=== PATIENT | female | born 1990 | race Caucasian/White ===

== ENCOUNTER → 2020-01-18 | Outpatient (CLI) | payer OTHER ==
--- NOTE | 2020-01-18 12:14 | REPVR ---
PROCEDURE INFORMATION: Exam: US After First Trimester, Transabdominal Exam date and time: 01/18/2020 11:16 AM Age: 29 years old Clinical indication: Screening exam; Routine US, uterus; Additional info: Measuring less then dates. PT states baby was measuring 8 days behind with last ultrasound, first daughter was born at just under 6 lbs TECHNIQUE: Imaging protocol: Real-time transabdominal obstetrical ultrasound of the maternal pelvis and a second or third trimester with image documentation. COMPARISON: No relevant prior studies available. FINDINGS: Gestation: Single live intrauterine gestation. heart rate: The FHR is 139 bpm. Presentation: A normal intrauterine is present in a vertex presentation. Placenta: The placenta is located anteriorly and is normal. Amniotic fluid: Amniotic fluid is normal for gestational age. Amniotic fluid index: The CHARITO is not measured cm. ANATOMY: Brain parenchyma: Normal Midline falx: Normal Cerebellum: Normal Cerebral ventricles: The ventricular atria are unremarkable. 3rd ventricle: Possibly prominent, this may represent a cavum. 4th ventricle: Not well seen Cisterna magna: Unremarkable Septum pellucidum: See 3rd ventricle Coronal face including nose, lips and lens: Limited demonstration by position. Upper lip and nose: Limited demonstration by position. Neck: Limited demonstration Aortic arch: Obscured by position Heart four-chamber view, heart size and position: Normal Heart three-vessel view: Obscured by position Heart three-vessel trachea view: Obscured by position Heart right ventricular outflow tract: Obscured by position Heart left ventricular outflow tract: Normal superior and inferior vena cava: Obscured by position diaphragm: Normal gallbladder: Obscured by position liver: Normal kidneys: Normal renal arteries: Obscured by position stomach: Normal urinary bladder: Normal Spine: Normal Spine shape and curvature: Normal Integrity soft tissue overlying spine: Normal Ribs: Obscured by position Umbilical cord insertion site into the abdomen: Normal Umbilical cord vessel number: Normal 3 vessel Arms and hands: The arms are documented, assessment of the hands is limited. Legs and feet: The legs are documented, assessment of the feet is limited. abdominal wall: Normal external genitalia: Not demonstrated BIOMETRY: Gestational age (AUA): AUA age is 26 weeks 1 day. Estimated due date (AUA): DENNY is 04/24/2020 compared to previous impression of 04/14/2020. Estimated weight: Estimated weight is 893 g. Biparietal diameter: The BPD is 6.52 cm corresponding to 26 weeks 2 days. Head circumference: The HC is 23.9 cm corresponding to 26 weeks 0 days. Abdominal circumference: The AC is 21.6 cm corresponding to 26 weeks 1 day. Femur length: The FL is 4.82 cm corresponding to 26 weeks 1 day. MATERNAL ANATOMY: Uterus: Unremarkable. Cervix: Cervical length is 5.3 cm. Right adnexa: Ovary is obscured by overlying bowel gas. Left adnexa: Ovary is obscured by overlying bowel gas. IMPRESSION: Single live intrauterine gestation. Electronically signed by: Anibal Acosta On 01/18/2020 12:14:39 PM
== END ==
LOC: M RAD 10:29
PROVIDERS: ATTEND Obstetrics & Gynecology
DX: O26.842 Uterine size-date discrepancy, second trimester (principal); Z3A.26 26 weeks gestation of pregnancy

== ENCOUNTER → 2020-02-20 | Outpatient (CLI) | payer OTHER ==
--- NOTE | 2020-02-20 10:53 | REP ---
INDICATION: PREG,GROWTH SCAN- IUGR, CHR HTN COMPARISON: 01/18/2020 TECHNIQUE: Transabdominal obstetrical ultrasound with color Doppler evaluation. FINDINGS: Examination demonstrates a single live intrauterine in breech presentation. motion is identified by technologist. Placenta is noted anterior and grade 2 without evidence for placenta previa or abruption. Amniotic fluid volume is normal. Cervix measures 3.7 cm in length and appears closed. No evidence for nuchal cord. Gestational age by 1st ultrasound 30 weeks 5 days with DENNY 04/25/2020. Gestational age by current measurements 29 weeks 5 days with DENNY 05/02/2020. FHR equals 133 beats per minute. BPD: 7.3 cm; 29 weeks 2 days HC: 27.1 cm; 29 weeks 4 days AC: 26.0 cm; 30 weeks 1 day FL: 5.8 cm; 30 weeks 2 days HL: 5.0 cm; 29 weeks 3 days HC/AC: 1.04 Estimated weight 1507 grams (42ndpercentile). CHARITO: 12.6 cm Umbilical artery 1 SD ratio: 2.60 Middle cerebral artery SD ratio: 6.94 Anatomical assessment demonstrates normal structures. IMPRESSION: Single live intrauterine in breech presentation demonstrating appropriate interval growth and estimated weight as compared with 1st ultrasound. <Electronically signed by Maurizio Vazquez > 02/20/20 [id number]
== END ==
LOC: M RAD 09:28
PROVIDERS: ATTEND Obstetrics & Gynecology
DX: O16.3 Unspecified maternal hypertension, third trimester (principal); Z3A.31 31 weeks gestation of pregnancy

== ENCOUNTER → 2020-02-27 | Outpatient (CLI) | payer OTHER ==
--- NOTE | 2020-02-29 07:26 | REP ---
INDICATION: PREG, IUGR, CHR HTN COMPARISON: 02/20/2020 TECHNIQUE: Transabdominal obstetrical ultrasound with color Doppler evaluation. FINDINGS: Examination demonstrates a single live intrauterine in cephalic presentation. motion is identified by technologist. Placenta is noted anterior/right lateral and grade 2 without evidence for placenta previa or abruption. Amniotic fluid volume is normal. Cervix measures 3.7 cm in length and appears closed. CHARITO: 11.8 cm (8.6-24.1) heart rate: 135 beats per minute Umbilical artery S/D ratio: 3.02 (1.85-3.89). IMPRESSION: Single live advanced gestation in cephalic presentation. Amniotic fluid volume is within normal range. <Electronically signed by Maurizio Vazquez > 02/29/20 [id number]
== END ==
LOC: M RAD 10:21
PROVIDERS: ATTEND Obstetrics & Gynecology
DX: Z36.4 Encounter for antenatal screening for fetal growth retardation (principal); O16.3 Unspecified maternal hypertension, third trimester

== ENCOUNTER → 2020-03-05 | Outpatient (CLI) | payer OTHER ==
--- NOTE | 2020-03-05 12:34 | REP ---
INDICATION: GR SCAN W UMBILICAL DS . COMPARISON: 02/27/2020 as well as other prior exams. TECHNIQUE: Real-time sonographic evaluation of the gravid uterus performed. FINDINGS: Estimated gestational age is34 weeks 2 days, EDC 04/14/2020. Today's measurements indicate appropriate growth. Presentation: Cephalic Placenta the anterior, grade 1, without evidence of placenta previa. There is again a marginal cord insertion at the placenta. heart rate is recorded at 133 beats per minute. Amniotic fluid is subjectively normal. CHARITO 15.4 (normal 8.0-24.8). Closed cervical length is measured at 4.2 cm. Biometry chart: BPD: 81 mm, 32 weeks 5 days, 26th percentile. HC: 290 mm, 32 weeks 0 days, 15th percentile AC: 284 mm, 32 weeks 3 days, 22nd percentile Femur length: 60 mm, 31 weeks 1 days, less than 5th percentile HC to AC ratio: 1.02, normal range 0.94-1.13. Estimated weight: 1886g, 21st percentile. SD ratio umbilical artery 2.49 (normal 1.72-3.65). RI 0.60 (normal is 0.47-0.73). anatomy: Cranium: Grossly normal Lateral Ventricles/Choroid Plexus: Grossly normal Posterior Fossa/Cerebellum: Grossly normal Nose/lips/profile: Grossly normal, suboptimal due to position. Four chamber heart: Suboptimal visualization Right ventricular outflow tract: Suboptimal visualization Left ventricular outflow tract: Suboptimal visualization Left-sided stomach: Grossly normal Kidneys: Grossly normal Bladder: Grossly normal Cord Insertion: Grossly normal 3 vessel cord: Grossly normal Spine: Grossly normal IMPRESSION: Viable single intrauterine gestation as above. <Electronically signed by Dimas Munoz > 03/05/20 [id number]
== END ==
LOC: M RAD 10:26
PROVIDERS: ATTEND Obstetrics & Gynecology
DX: O10.011 Pre-existing essential hypertension complicating pregnancy, first trimester (principal)

== ENCOUNTER → 2020-03-12 | Outpatient (CLI) | payer OTHER ==
--- NOTE | 2020-03-13 07:27 | REP ---
INDICATION: HAS CHTN AND IUGA WITH COMPARISON: 03/05/2020 TECHNIQUE: Transabdominal obstetrical ultrasound with color Doppler evaluation. FINDINGS: Examination demonstrates a single live intrauterine in cephalic presentation. motion is identified by technologist. Placenta is noted right lateral and grade 2 without evidence for placenta previa or abruption. Amniotic fluid volume is normal. Cervix measures 4.0 cm in length and appears closed.. Gestational age by LMP 35 weeks 2 days with DENNY 04/14/2020. Gestational age by 1st U/S 33 weeks 5 days with DENNY 04/25/2020. FHR equals 129 beats per minute. Amniotic fluid index: 12.0 cm (7.8-24.9) Umbilical artery SD ratio: 3.87 (1.67-3.57) IMPRESSION: Single live advanced gestation in cephalic presentation. Amniotic fluid index within normal limits. Umbilical artery SD ratio mildly elevated. <Electronically signed by Maurizio Vazquez > 03/13/20 [id number]
== END ==
LOC: M RAD 10:17
PROVIDERS: ATTEND Obstetrics & Gynecology
DX: Z34.83 Encounter for supervision of other normal pregnancy, third trimester (principal); Z3A.33 33 weeks gestation of pregnancy

== ENCOUNTER → 2020-03-19 | Outpatient (CLI) | payer OTHER ==
--- NOTE | 2020-03-20 04:09 | REP ---
INDICATION: PREG,GROWTH SCAN- IUGR, CHR HTN COMPARISON: 03/12/2020 TECHNIQUE: Transabdominal obstetrical ultrasound with color Doppler evaluation. FINDINGS: Examination demonstrates a single live intrauterine in cephalic presentation. motion is identified by technologist. Placenta is noted anterior and grade 1 without evidence for placenta previa or abruption. Amniotic fluid volume is normal. Cervix measures 3.2 cm in length and appears closed.. Gestational age by LMP 36 weeks 2 days with DENNY 04/14/2020. Gestational age by current measurements 33 weeks 2 days with DENNY 05/05/2020. FHR equals 122 beats per minute. BPD: 8.2 cm 33 weeks 1 day HC: 30.7 cm 34 weeks 2 days AC: 29.9 cm 33 weeks 6 days FL: 6.7 cm 34 weeks 2 days HL: 5.4 cm 31 weeks 2 days HC/AC: 1.03 Estimated weight 2308 grams (17thpercentile). CHARITO: 9.2 cm (7.6-24.8) Umbilical artery SD ratio: 2.70 (1.63-3.49) Middle cerebral artery SD ratio: 4.39; RI: 0.77 Limited anatomical assessment demonstrates no obvious abnormalities. The right cardiac ventricular outflow tract is incompletely evaluated due to advanced age and positioning. IMPRESSION: Single live advanced gestation in cephalic presentation. While the estimated weight falls within normal range based on age by LMP, measurements suggest age at 33 weeks 2 days suggesting less than expected growth. <Electronically signed by Maurizio Vazquez > 03/20/20 [id number]
== END ==
LOC: M RAD 10:09
PROVIDERS: ATTEND Obstetrics & Gynecology
DX: Z34.83 Encounter for supervision of other normal pregnancy, third trimester (principal); Z3A.33 33 weeks gestation of pregnancy

== ENCOUNTER 2020-03-31 09:49 | Inpatient (IN) | payer OTHER ==
[~2020-03-31] VITALS: Ht 162.6 cm; Wt 58.9 kg
[2020-03-31] VITALS (13 sets, daily range): BP systolic 107–131; BP diastolic 56–79
[2020-03-31] MEDS ORDERED: LABE100T4 PO (10:10)
[2020-03-31] MEDS ORDERED: ASPI81CH33 PO (10:10)
[2020-03-31] MEDS ORDERED: MULTTAB20 PO (10:10)
[2020-03-31] MEDS: LABETALOL 100 MG TAB PO SCH ×2 (11:02→22:01)
--- NOTE | 2020-03-31 11:11 | HPEPDOC ---
Obstetrical History & Physical General Date of Admission Mar 31, 2020 at 09:49 History of Present Illness 29 yo at 38+0 weeks gestation by 5+6 week US presents to L&D today for a scheduled IOL for CHTN (on labetalol) and possible IUGR. Ms. Lay reports feeling well today and has no complaints. Today she denies any headaches, RUQ pain, visual changes, or SOB. Chief Complaint: Induction of labor Information Provided By: Patient Age: 29 : 3 Term: 1 Pre-term: 0 Abortions: 1 Livin Care Care: Good Care Dating Final EDC: Apr 14, 2020 Final EDC for Daily Update: Apr 14, 2020 Final EDC by: 1st trimester (US) (DENNY of [id number] set by 5+6 week US) Antepartum Course Diagnos(e)s Chronic hypertension (well controlled by 100mg BID labetalol) Been on ASA throughout . Possible IUGR (3rd percentile for growth early in the . 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 Past Medical History Past Obstetrical History : Past Obstetrical History: Multigravida ( in 2018 at 37 weeks after IOL for Pre E) DRY [employer]IP[employer]ER History: No pertinent history Past Medical History Medical History Possible ITP Chronic Hypertension Surgical History: Tucker teeth Social History Marital Status: Family situation: Spouse/partner home Psychosocial History: No pertinent psych hx * Smoker: non-smoker Alcohol: Denies Drugs: denies Abuse Violence Screening Have you been hit/kicked/slapp: No Have you been sexually assault: No Imunizations Tdap status: current Influenza Status: current Allergies Coded Allergies: No Known Allergies (Unverified , 03/31/20) Medications Scheduled Aspirin (Aspirin) 81 Mg Tab.chew, 1 TAB PO DAILY for pain Labetalol HCl (Labetalol HCl) 100 Mg Tablet, 1 TAB PO BID No122/Iron/Folic Acid ( Multi Tablet) 1 Each Tablet, 1 TAB PO DAILY Physical Examination Physical Examination GENERAL: Alert and oriented times three. ABDOMEN: Gravid and non-tender to touch. FETUS: Is vertex (VTX) by sterile vaginal examination (SVE), EXTREMITIES: No edema. Vital Signs/I&O Vital Signs Date Time Temp Pulse Resp B/P (MAP) Pulse Ox O2 Delivery O2 Flow Rate FiO2 03/31/20 10:15 98.8 78 16 124/79 (94) Laboratory Data [facility] Laboratory Tests 2 03/31/20 10:03: Serology Scanned Report Hepatitis B Testing Urine Culture: No Growth Pertinent Laboratoy Data Blood Type: AB+ RBC Antibody Screen: Negative HIV: Negative Hepatitis B: Negative Hepatitis C: Negative Rapid Plasma Reagin: Nonreactive Rubella: Immune Varicella: Immune Chlamydia/Gonorrhea: Negative Group B Streptococcus: Negative Quad Screen Test: Negative Cystic Fibrosis: Negative Glucose Tolerance Test: 155 (Abnormal 1hr GTT of 155, normal 3hr TT) Anatomy Ultrasound Placenta Location: Anterior Normal Anatomy: Yes Placenta Previa: No Other Ultrasounds Numerous ultrasounds and umbilical artery doppler studies due to possible IUGR measured earlier in the . Most recent growth scan on 19Mar2020 demonstrated fetus in the 17th percentile by weight. Umbilical artery doppler study normal. Steroid Therapy Steroid Therapy: No Vaginal Examination Dilation: 1cm Effacement: 50% Station: -3 Cervical Consistency: Medium Cervical Position: Posterior Presentation: Cephalic presentation Position: Vertex (occiput) Assessment Heart Rate (FHR): 125 Variability: Moderate Accelerations: Positive Decelerations: None Tocometer Contractions: No Assessment/Plan Assessment Irene is a 29 yo at 38+0 weeks gestation who presents to L&D today for IOL for CHTN and possible IUGR. Plan Admit for IOL. Apply IV fluids. GBS negative. Cervix unfavorable. Will start IOL with PO cytotec. Regular diet while cervical ripening. Home labetalol ordered. Will obtain CBC, CMP, and UA. Monitor BPs closely. Anticipate . Ethan Myles, DO Labor and Delivery Counseling Vaginal / Operative vaginal delivery / C section counseling We will deliver your baby through the vagina with possible assistance of forceps or vacuum device if needed for maternal or indications. Forceps and vacuum are devices that can assist with vaginal delivery when normal pushing efforts c annot achieve delivery on their own or when delivery is needed in an emergency for baby's well-being. Medications may be required to induce or augment (help) your labor in order to achieve a vaginal delivery. An episiotomy may be required to help your baby to delivery vaginally. You may also require repair of any lacerations or tears of your vagina or vulva that are caused by delivery. In some cases, emergencies can occur that require an emergency section delivery so quickly that there may not be enough time to stop and complete consent forms for section. Understand that if this occurs, your providers will discuss the need for a section with you before they proceed with surgery. section is the delivery of your baby through an incision in your abdomen. In some situations, section may be safer to mom and baby than continuing labor and is only performed when clinically indicated. Risks of vaginal delivery include but are not limited to: Bleeding, infection, injury to the vagina, pelvic structures, injury to baby, damage to the uterus, reactions to anesthesia, uterine rupture, risk of hysterectomy for life threatening bleeding, or . Medications used to induce or augment labor may increase your risk for infection, uterine tachysystole, uterine rupture, heart rate abnormalities, need for emergency delivery or possible hysterectomy, and hemorrhage. Additional risks for use of forceps and vacuum include: increased risk of perineal and vaginal lacerations, risk of urinary or bowel incontinence, increased risk of injury to baby with bru ising, scratches, hematomas on the head, or intracranial bleeding. Ms. Lay appears to understand these risks and elects to proceed with IOL. She also consents to a blood transfusion if necessary. DO ARTI Arciniega CHRISTOPHER J. DO Mar 31, 2020 11:10
[2020-03-31 12:34] LABS: BASO % 0.1 % (0.0-1.0); EOS % 0.3 % (0.0-3.0); HEMATOCRIT 38.1 % (36.0-47.0); HEMOGLOBIN 12.7 g/dl (12.0-15.5); LYMPH # 0.8 10^3/uL (1.5-5.0); LYMPH % 11.5 % (24.0-44.0); MEAN CORPUSCULAR HEMOGLOBIN 31.9 pg (27.0-33.0); MEAN CORPUSCULAR HGB CONC 33.3 g/dl (32.0-36.5); MEAN CORPUSCULAR VOLUME 95.7 fl (80.0-96.0); MONO # 0.5 10^3/uL (0.0-0.8); MONO % 7.2 % (0.0-5.0); NEUTROPHILS # 5.7 10^3/uL (1.5-8.5); NEUTROPHILS % 80.5 % (36.0-66.0); PLATELET COUNT, AUTOMATED 116 10^3/uL (150-450); RED BLOOD COUNT 3.98 10^6/uL (4.00-5.40); WHITE BLOOD COUNT 7.1 10^3/uL (4.0-10.0)
[2020-03-31] MEDS ORDERED: miSOPROStol 50 MCG 1/2 TAB (S0191) PO ONE (12:45)
[2020-03-31 12:52] LABS: ALT/SGPT 21 U/L (12-78); BILIRUBIN,TOTAL 0.4 MG/DL (0.2-1.0); CREATININE FOR GFR 0.48 MG/DL (0.55-1.30); GLOMERULAR FILTRATION RATE > 60.0 (>60); LDH LACTATE DEHYDROGENASE 208 U/L (84-246); URIC ACID 3.7 MG/DL (2.6-6.0)
[2020-03-31 13:00] LABS: APPEARANCE, URINE CLEAR (CLEAR); BACTERIA, URINE AUTO NEGATIVE (NEGATIVE); BILIRUBIN, URINE AUTO NEGATIVE (NEGATIVE); BLOOD, URINE BLOOD 3+ (NEGATIVE); COLOR, URINE STRAW (YELLOW); GLUCOSE, URINE (UA) AUTO NEGATIVE (NEGATIVE); KETONE, URINE AUTO TRACE mg/dL (NEGATIVE); LEUKOCYTE ESTERASE, URINE AUTO NEGATIVE (NEGATIVE); NITRITE, URINE AUTO NEGATIVE (NEGATIVE); PROTEIN, URINE AUTO NEGATIVE (NEGATIVE); RBC, URINE AUTO 0 /HPF (0-3); SPECIFIC GRAVITY URINE AUTO 1.003 (1.002-1.035); SQUAMOUS EPITHELIAL CELL UR AU 0 /HPF (0-6); UROBILINOGEN, URINE AUTO 0.2 mg/dL (0.0-2.0); WBC, URINE AUTO 1 /HPF (0-3)
[2020-03-31 13:16] LABS: CREATININE,RANDOM URINE 21.5 MG/DL; TOTAL PROTEIN,RANDOM URINE 7.8 MG/DL (0.0-12.0)
--- NOTE | 2020-03-31 17:43 | IPNPDOC ---
Text Note Date of Service The patient was seen on 03/31/20. NOTE Irene is now s/p one dose of cytotec. She reports feeling well. Chaperoned by RN Cervix: /3. Early bulb placed with 60ml saline intrauterine. FHR Cat I with moderate variability, +accels, no decels. Blood pressure remains stable. Admission platelets 116. Urine pr:cr is 0.36, though it is unclear what her baseline level of proteinuria is. Continue with IOL. All questions answered. DO Shar VS,Sherry, I+O VS, Sherry, I+O Laboratory Tests 03/31/20 12:15 Vital Signs Date Time Temp Pulse Resp B/P (MAP) Pulse Ox O2 Delivery O2 Flow Rate FiO2 03/31/20 15:37 72 119/69 (86) 03/31/20 14:29 98.3 16 NIKOLAI CHI DO Mar 31, 2020 17:43
[2020-03-31] MEDS ORDERED: BUTORPHANOL 2 MG/ML INJ (J0595) IV ONE (18:30)
[2020-03-31] MEDS ORDERED: ONDANSETRON 4MG/2ML VIAL IV PRN (18:30)
[2020-03-31] MEDS ORDERED: LR 1,000 ML IV SCH (23:14)
[2020-03-31] MEDS ORDERED: OXYTOCIN DRIP 30 UNITS in IV 1 EA IV SCH (23:15)
[2020-04-01] VITALS (9 sets, daily range): BP systolic 109–140; BP diastolic 62–88
[2020-04-01] MEDS ORDERED: OXYTOCIN DRIP 30 UNITS in IV 1 EA IV SCH (01:06)
[2020-04-01 01:11] LABS: HEMATOCRIT 37.7 % (36.0-47.0); HEMOGLOBIN 12.4 g/dl (12.0-15.5); MEAN CORPUSCULAR HEMOGLOBIN 31.5 pg (27.0-33.0); MEAN CORPUSCULAR HGB CONC 32.9 g/dl (32.0-36.5); MEAN CORPUSCULAR VOLUME 95.7 fl (80.0-96.0); PLATELET COUNT, AUTOMATED 114 10^3/uL (150-450); RED BLOOD COUNT 3.94 10^6/uL (4.00-5.40); WHITE BLOOD COUNT 12.4 10^3/uL (4.0-10.0)
--- NOTE | 2020-04-01 01:13 | DNPDOC ---
[facility] Delivery Note Delivery Note DATE OF DELIVERY: 01Apr2020 at ~0045 PREDELIVERY DIAGNOSIS: 38+1 weeks gestation and IOL for CHTN POST DELIVERY DIAGNOSIS: Delivered. PROCEDURE: Spontaneous vaginal delivery HHAS: Dr. Myles ANESTHESIA: None ESTIMATED BLOOD LOSS: 200 FINDINGS: 4 pound 14 ounce female , Score 9/9 DELIVERY SUMMARY: Irene's boss bulb was expelled and she rapidly progressed after that. She was C/C/+1 and had a desire to push. The bed was broken down and she was prepped for delivery. With excellent effort over about only 5 minutes, her baby delivered. Presentation was RASHMI with restitution to ROT. The left anterior shoulder delivered with gentle traction followed easily by the rem ainder of the body. The infant was dried and stimulated on the field and a bulb suction was used. The was placed on the maternal abdomen and cried vigorously. The three vessel umbilical cord was then clamped and cut by the FOB after appropriate time delay and under my direction. Third stage was completed with gentle traction on on the cord and it was productive of an intact placenta. The uterus was firmed with massage and pitocin was administered IV bolus. Inspection of the cervix, vagina, labia, and perineum revealed a midline first degree vaginal floor laceration. This was repaired with 3-0 vicryl suture in the usual fashion after injection of lidocaine for analgesia. There was excellent cosmesis and hemostasis after the repair. The fundus was palpated again and was firm. Sponge, instrument, and needle counts were correct X2. Mother and stable when I left the room. DO ARTI Arciniega CHRISTOPHER J. DO Apr 01, 2020 01:13
[2020-04-01] MEDS ORDERED: MEASLES,MUMPS,RUBELLA VACCINE INJ (MMR-II) (90707) SC SCH (01:15)
[2020-04-01] MEDS ORDERED: RHOGAM 300 MCG (1500 IU) INJ (J2790) IM SCH (01:15)
[2020-04-01] MEDS ORDERED: BENZOCAINE 20% HEMORRHOIDAL OINTMENT 28GM TUBE TOP PRN (01:15)
[2020-04-01] MEDS ORDERED: ACETAMINOPHEN 500 MG TAB PO PRN (01:15)
[2020-04-01] MEDS ORDERED: ONDANSETRON 4MG/2ML VIAL IV PRN (01:15)
[2020-04-01] MEDS ORDERED: DOCUSATE SODIUM 100MG CAPSULE PO PRN (01:15)
[2020-04-01] MEDS ORDERED: IBUPROFEN 600MG TAB PO PRN (01:15)
[2020-04-01] MEDS ORDERED: LIDOCAINE 1% MDV 20ML VIAL SC ONE (02:30)
[2020-04-01] MEDS: IBUPROFEN 800 MG TAB PO PRN (03:55)
[2020-04-01] MEDS: ACETAMINOPHEN TAB 650MG DOSE (2X325MG) PO PRN ×2 (07:37→20:25)
[2020-04-01] MEDS: PRENATAL VITAMINS CHEWABLE TABLET PO SCH (09:41)
[2020-04-01] MEDS: LABETALOL 100 MG TAB PO SCH ×2 (09:42→20:25)
[2020-04-02] MEDS: IBUPROFEN 800 MG TAB PO PRN ×2 (05:14→15:14)
[2020-04-02 05:31] VITALS: BP 113/63
[2020-04-02] MEDS: PRENATAL VITAMINS CHEWABLE TABLET PO SCH (09:17)
[2020-04-02] MEDS: LABETALOL 100 MG TAB PO SCH ×2 (09:18→20:51)
--- NOTE | 2020-04-02 15:55 | IPN ---
PROGRESS NOTE DATE: 04/02/2020 09:49:00 am SUBJECTIVE: This lady is a 29-year-old 3 now para 2 admitted for induction of labor at 38 weeks gestation because of chronic hypertension and questionable IUGR. She had a spontaneous vaginal delivery of female infant 4 pounds, 14 ounces, Apgars of 9 and 9 at 1 and 5 minutes respectively. She sustained a first degree tear which was repaired in the usual fashion. Presently, her hemoglobin is 12.4, hematocrit is 37.7 and platelets are 114,000. She did have low platelets on admission at 116,000. Her chemistry which was reviewed was within normal limits. Her hematology is mentioned. Her urine was negative. She did have 3+ blood, that is because of bloody discharge from labor. Her protein/creatinine ratio was 0.36. PHYSICAL EXAMINATION: This morning her blood pressure is 113/63, respirations are 18, pulse is 70, temperature is 98.4. She has been normotensive throughout taking her Labetalol 100 mg b.i.d. p.o. We discussed phlebitis, cystitis, mastitis, endometritis and cellulitis, diet, exercise, pain management, pain in her breasts and wound care. PLAN: She will be discharged tomorrow, presently the baby is IUGR and having low chemistry and of course the baby is not ready for discharge at the present time. The patient and expressed an understanding and plan of care and anticipate to discharge tomorrow. Follow-up in six weeks for a follow-up. Meds are at [facility] and the baby will be discharged to [facility]. All questions were answered, 20 minute discussion. cc: Tyrone OB
[2020-04-02 18:00] VITALS: BP 114/65
[2020-04-03] MEDS: IBUPROFEN 800 MG TAB PO PRN (05:12)
[2020-04-03 05:34] VITALS: BP 122/62
[2020-04-03] MEDS ORDERED: IBUP80TA PO (08:20)
[2020-04-03] MEDS ORDERED: ACET1TAB55 PO (08:20)
--- NOTE | 2020-04-03 08:21 | DS.PDOC ---
Discharge Summary General Date of Admission Mar 31, 2020 at 09:49 Date of Discharge Apr 03, 2020 Discharge Summary HOSPITAL COURSE: Ms. Lay is a 29 yo G3 now P2 who underwent an uncomplicated on 01Apr2020 after being admitted for an IOL for CHTN and suspected IUGR. Her course was unremarkable. On her day of discharge she met all appropriate discharge criteria. She was ambulating, voiding, tolerating a regular diet, and had minimal lochia. DISCHARGE MEDICATIONS: Please see below. ALLERGIES: Please see below. PHYSICAL EXAMINATION ON DISCHARGE: VITAL SIGNS: Please see below. GENERAL: AAOX3, NAD ABDOMINAL EXAMINATION: Fundus firm at U-2. No fundal tenderness EXTREMITIES: No edema PSYCHIATRIC EXAMINATION: Affect appropriate LABORATORY DATA: Please see below. ACTIVITY: Pelvic rest for 6 weeks DIET: Regular DISCHARGE PLAN: Discharge home DISPOSITION: Discharge home on 03Apr2020 . DISCHARGE INSTRUCTIONS: 1. Nothing in the vagina for 6 weeks ITEMS TO FOLLOWUP ON ON OUTPATIENT: 1. Call to schedule a visit for 6 weeks post delivery DISCHARGE CONDITION: Stable. TIME SPENT ON DISCHARGE: Greater than 20 minutes. Nikolai Chi DO Vital Signs/I&Os Vital Signs Date Time Temp Pulse Resp B/P (MAP) Pulse Ox O2 Delivery O2 Flow Rate FiO2 04/03/20 05:34 97.6 75 16 122/62 (82) 96 Room Air Discharge Medications Scheduled Labetalol HCl (Labetalol HCl) 100 Mg Tablet, 1 TAB PO BID, (Reported) No122/Iron/Folic Acid ( Multi Tablet) 1 Each Tablet, 1 TAB PO DAILY, (Reported) Scheduled PRN Acetaminophen (Acetaminophen) 325 Mg Tablet, 650 MG PO Q4HP PRN for PAIN LEVEL 1-5 Ibuprofen (Ibuprofen) 800 Mg Tablet, 800 MG PO Q8HP PRN for PAIN LEVEL 6-10 Allergies Coded Allergies: No Known Allergies (Unverified , 03/31/20) NIKOLAI CHI DO Apr 03, 2020 08:21
[2020-04-03 09:55] VITALS: BP 127/63
[2020-04-03] MEDS: LABETALOL 100 MG TAB PO SCH (09:55)
[2020-04-03] MEDS: PRENATAL VITAMINS CHEWABLE TABLET PO SCH (09:55)
== END 2020-04-03 11:10 | disposition home or self-care (01) | DRG 807 ==
LOC: M LDI 09:49 → M OBS 04-01 03:21
PROVIDERS: ADMIT Obstetrics & Gynecology; ATTEND Obstetrics & Gynecology
PROC: 3E033VJ Introduction of Other Hormone into Peripheral Vein, Percutaneous Approach (ICD-10-PCS; 2020-03-31)
PROC: 3E0DXGC Introduction of Other Therapeutic Substance into Mouth and Pharynx, External Approach (ICD-10-PCS; 2020-03-31)
PROC: 10E0XZZ Delivery of Products of Conception, External Approach (ICD-10-PCS; principal; 2020-04-01)
PROC: 0HQ9XZZ Repair Perineum Skin, External Approach (ICD-10-PCS; 2020-04-01)
DX: O10.92 Unspecified pre-existing hypertension complicating childbirth (principal); Z37.0 Single live birth; O70.0 First degree perineal laceration during delivery; Z3A.38 38 weeks gestation of pregnancy